=== PATIENT | female | born 2000 | race Caucasian/White ===

== ENCOUNTER 2024-04-19 23:10 | Emergency (ER) | payer BC, SELFPAY ==
[2024-04-19 23:36] VITALS: BP 130/86; PULSE 105; RESP 16; TEMP 36.6; O2SAT 100; BMI 20.2
--- OUTSIDE RECORDS SUMMARY | 2024-04-20 00:10 | XMS_ITS | Clinical Summary ---
Author Organization [facility] Address [place], [place] [address] Care Team Providers Care Hand Spring Repairer Name Role Phone Ranulfo Thomasomega Primary Care Provider Unavail able Allergies Active Allergy Reactions Criticality Noted Date Comments Gluten GI Upset 04/22/2021 Onion Throat Swelling/Closing High 06/26/2018 Paroxetine Other - Describe In Comment Field 11/17/2020 Dilated eyes Medications Medication Sig Dispensed Refills Start Date End Date Status gabapentin (NEURONTIN) 300 mg capsule Take 300 mg by mouth. 09/17/2020 Active albuterol HFA (PRO-AIR; VENTOLIN; PROVENTIL) 90 mcg/actuation inhalerIndications:Mil d intermittent asthma without complication Inhale 2 Puffs by mouth every 4 hours if needed. 0 02/11/2021 Active cloNIDine HCL (CATAPRES) 0.1 mg tablet 0.1 mg. 08/29/2021 Active desogestrel-ethinyl estradiol 0.15-30 mg-mcg (Apri) tablet Apri 0.15 mg-0.03 mg tablet Active pantoprazole (PROTONIX) 40 mg delayed-release tabletIndications:Acut e gastric ulcer without hemorrhage or perforation Take 1 Tablet (40 mg) by mouth once daily. 30 Tablet 06/09/2022 Active Active Problems Problem Noted Date Diagnosed Date Seizure 03/05/2022 Sleep disorder 06/26/2018 Mood disorder 06/26/2018 Anxiety 06/26/2018 Resolved Problems Problem Noted Date Diagnosed Date Resolved Date Anorexia nervosa, restricting type 03/05/2022 04/29/2022 Immunizations Name Administration Dates Next Due AMB Influenza, IIV4 PF (=>6 mos Flulaval,Fluzone Fluarix)(Flu Clinic Only) 09/11/2019 Influenza, IIV4 12/16/2020,07/19/2018 Family History Medical History Relation Name Comments Anxiety disorder Father Brain Aneurysm Maternal Grandmother Stroke Maternal Grandmother Depression Mother Anxiety disorder Paternal Aunt Anxiety disorder Paternal Grandfather Lung cancer Paternal Grandfather Anxiety disorder Paternal Grandmother Lung cancer Paternal Grandmother Relation Name Status Comments Father Maternal Grandmother Mother Paternal Aunt Paternal Grandfather Paternal Grandmother Social History Tobacco Use Types Packs/Day Years Used Date Smoking Tobacco: Never Smokeless Tobacco: Never Tobacco Cessation:Counseling Given: Yes Comments:no exposure Alcohol Use Standard Drinks/Week Comments Never 0 (1 standard drink = 0.6 oz pur e alcohol) PHQ-2 Answer Date Recorded PHQ-2 TOTAL SCORE 0 03/05/2022 Social Connections Answer Date Recorded Frequency of Communication with Friends and Fami ly Not on file 10/31/2021 Financial Resource Strain Answer Date R ecorded Difficulty of Paying Living Expenses Not on file 10/31/2021 Difficulty of Paying Living Expenses Not on file 10/31/2021 Sex and Gender Information Value Date Recorded Sex Assigned at Not on file Gender Identity Not on file Sexual Orientation Not on file Obstetrics History Para Term AB IAB SAB Ectopic Multiple Livin g Live Births 0 0 0 0 0 0 0 0 0 0 0 Last Filed Vital Signs Vital Sign Reading Time Taken Comments Blood Pressure 123/77 04/29/2022 9:42 AM CDT Pulse 106 04/29/2022 9:39 AM CDT Temperature 36.8 ??C (98.3 ??F) 03/25/2022 9:26 AM CD T Respiratory Rate 15 11/12/2021 1:48 PM DISPATCH LEAD Oxygen Saturation 100% 04/29/2022 9:39 AM CDT Inhaled Oxygen Concentration - - Weight 50.9 kg (112 lb 3.2 oz) 04/29/2022 9:39 A M CDT Height 149.5 cm (4' 10.86) 04/29/2022 9:39 AM C DT Body Mass Index 22.77 04/29/2022 9:39 AM CDT Plan of Treatment Health Maintenance Due Date Last Done Comments Tdap 2012 HIV for age 15-65 2016 HPV series for age 9-26 (1 - 3-dose series) 2016 Hepatitis C screening for age 18-79 2019 Chlamydia for age 16-24 12/16/2021 12/16/2020 Tetanus booster 2021 Pap test for age 21-65 2022 Depression screening for age 12+ 03/05/2023 03/05/2022, 11/17/2020, 06/29/2018, Additional history exists BMI (ht and wt on same day) for age 18+ 04/29/2023 04/29/2022, 03/25/2022, 03/05/2022, Additional history exists COVID-19 vaccine series (3 - season) 2023 02/24/2021, 01/27/2021 Influenza for age 9-49 07/01/2024 , 09/11/2019, 07/19/2018 Pneumococcal series for age 6-64 Aged Out No longer eligible based on patient's age to complete this topic Procedures Procedure Name Priority Date/Time Associated Diagnosis Comments GC CHLAMYDIA TRACH PROBE Routine 12/16/2020 12:25 PM DISPATCH LEAD from Last 3 Months or Most Recently Relevant to Health Maintenance Results * GC CHLAMYDIA TRACH PROBE (12/16/2020 12:25 PM DISPATCH LEAD) CHLAMYDIA PROBE Negative 11:21 PM DISPATCH LEAD [facility] N GONORRHOEAE PROBE Negative 12/17/2020 11:21 PM DISPATCH LEAD [facility] Other VAGINAL SWAB / Unknown Client Collect / Unknown 12/16/2020 12:25 PM DISPATCH LEAD 12/17/2020 6:03 PM DISPATCH LEAD January Anjum SIMPSON [employer] [facility] [address] [place] [address], [place] from Last 3 Months or Most Recently Relevant to Health Maintenance Care Teams Hand Spring Repairer Relationship Specialty Start Date End Date Leela Thomas PCP - General 07/31/20
--- OUTSIDE RECORDS SUMMARY | 2024-04-20 00:10 | XMS_ITS | Clinical Summary ---
Author Organization [facility] Address [address] [place] [address] Care Team Providers Care Lobster Catcher Name Role Phone Elsewhere, Pcp Primary Care Provider Unavailabl e Source Comments Patient records contain information from all sites at [facility]. For routine questions regarding patient records, call [phone] during business hours, M-F 8:00 AM - 5:00 PM Central Time. Record requests for emergency care only can be directed to [phone] at any time.[facility] Allergies Active Allergy Reactions Criticality Noted Date Comments Fish Containing Products GI intolerance 12/27/2018 Gluten GI intolerance 04/22/2021 Onion Other (see comments) 06/03/2016 Mouth numbness/tingling Mouth numbness/tingling Other [place]-3s GI intolerance 06/03/2016 ALL SEAFOOD Paroxetine Other (see comments) 11/17/2020 Dilated eyes Medications Medication Sig Dispensed Refills Start Date End Date Status gabapentin (NEURONTIN) 300 mg capsule Take 300 mg by mouth 3 (three) times a day. 09/17/2020 Active olopatadine (PATADAY) 0.2 % ophthalmic solution Administer 1 drop into both eyes daily. 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 e To A Substance Or Known Physiological Condition 10/06/2018 Resolved Problems Problem Noted Date Diagnosed Date Resolved Date Suicide Ideation 12/27/2018 01/01/2019 Encounters Date Type Department Care Team Description 04/12/2024 Clinical Communication Division of General Internal Medicine in [place], [place] [address] [place] [address] Prescheduling, Provider Triage from Last 3 Months Family History Medical History Relation Name Comments Anxiety disorder Father Depression Maternal Grandmother Depression Mother Anxiety disorder Sister Suicide Uncle Great Uncle Relation Name Status Comments Father Alive Maternal Grandmother Mother Alive Sister Uncle Great Uncle Social History Tobacco Use Types Packs/Day Years Used Date Smoking Tobacco: Former Cigarettes Smokeless Tobacco: Never Tobacco Cessation:Counseling Given: Not Answered Alcohol Use Standard Drinks/Week Comments No 0 (1 standard drink = 0.6 oz pur e alcohol) PHQ-2 Answer Date Recorded PHQ-2 Score 8 04/13/2019 Nutrition Answer Date Recorded Nutrition: EVOO Fat Source Unknown 12/23 Nutrition: Servings of Fruits/Vegetables per Day Not on file 12/23/2020 Dental Answer Date Recorded Dental: Regular Dentist Unknown 12/23/19 Sex and Gender Information Value Date Recorded Sex Assigned at Not on file Gender Identity Not on file Sexual Orientation Not on file Last Filed Vital Signs Vital Sign Reading Time Taken Comments Blood Pressure 132/85 04/20/2023 9:16 AM CDT Pulse 97 04/20/2023 9:16 AM CDT Temperature 36.8 ??C (98.2 ??F) 04/20/2023 9:16 AM CD T Respiratory Rate 18 04/20/2023 9:16 AM CDT Oxygen Saturation 100% 04/20/2023 9:16 AM CDT Inhaled Oxygen Concentration - - Weight 60 kg (132 lb 4.4 oz) 04/20/2023 9:16 AM CDT Height 149.9 cm (4' 11) 04/22/2021 7:23 PM CDT Body Mass Index 26.72 04/22/2021 7:23 PM CDT Plan of Treatment Health Maintenance Due Date Last Done Comments Cervical Cancer Screening 2001 Hepatitis C Screening 2001 HPV Vaccines (1 - 3-dose series) 2016 DTaP,Tdap,and Td Vaccines (1 - Tdap) 2020 Hepatitis B Vaccines (1 of 3 - 19+ 3-dose series) 2020 COVID-19 Vaccine (3 - 2022- season) 2023 02/24/2021, 01/27/2021 Influenza Vaccine (#1) 2023 , 09/11/2019, 07/19/2018 Depression Screening (Annual PHQ-2) 10/31/2023 Glucose Test for Med Monitoring Discontinued 03/05/2022, 04/22/2021, 02/11/2021, Additional history exists Meningococcal Vaccine Aged Out No clarisse reece eligible based on patient's age to complete this topic Pneumococcal vaccine (0-64 years) Aged Out No longer eligible based on patient's age to complete this topic Procedures Procedure Name Priority Date/Time Associated Diagnosis Comments EXTI BASIC METABOLIC PANEL, S/P Routine 03/05/2022 11:25 AM CDT from Last 3 Months or Most Recently Relevant to Health Maintenance Advance Directives For more information, please contact: [phone] * Full Code (Latest Code Status on File) Date Activated Date Inactivated Comments 12/27/2018 3:43 PM 01/01/2019 2:05 PM Question Answer Comments Full Code: Not Discussed Due to: Not medically appropriate * Full Code Date Activated Date Inactivated Comments 10/06/2018 7:05 PM 10/10/2018 2:56 PM Question Answer Comments Full Code: Not Discussed Due to: Not medically appropriate Care Teams Lobster Catcher Relationship Specialty Start Date End Date Elsewhere, Pcp PCP - General Family Medicine 12/27/18
--- OUTSIDE RECORDS SUMMARY | 2024-04-20 00:11 | XMS_ITS | Encounter Summary ---
Author Organization [facility] Address [address] [place] [id number] Care Team Providers Care Filler Shredding Machine Loader Name Role Phone Elsewhere, Pcp Primary Care Provider Unavailabl e Reason for Visit * Reason Onset Date Comments Triage 04/12/2024 Encounter Details Date Type Department Care Team (Late st Contact Info) Description 04/12/2024 Clinical Communication Division of General Internal Medicine in [place], [place] [address] [place] [phone] Prescheduling, Provider Triage Social History Tobacco Use Types Packs/Day Years Used Date Smoking Tobacco: Former Cigarettes Smokeless Tobacco: Never Alcohol Use Standard Drinks/Week Comments No 0 (1 standard drink = 0.6 oz pur e alcohol) PHQ-2 Answer Date Recorded PHQ-2 Score 8 04/13/2019 Nutrition Answer Date Recorded Nutrition: EVOO Fat Source Unknown 12/23 Nutrition: Servings of Fruits/Vegetables per Day Not on file 12/23/2020 Dental Answer Date Recorded Dental: Regular Dentist Unknown 12/23/19 21 Sex and Gender Information Value Date Recorded Sex Assigned at Not on file Gender Identity Not on file Sexual Orientation Not on file documented as of this encounter Miscellaneous Notes * Telephone Encounter - Pam Pisano - 04/12/2024 5:40 PM CDT Michelle Samuels 2000 [id number] 23 years Height: 4'11 Weight: 110 Gender: Female PCP: Who filled out ARF: Patient Request: I have medical symptoms without a clear diagnosis MAIN SYMPTOM Possible Fibromyalgia or Estefany Danlos syndrome Description: - Chronic pain and fatigue issues my entire life, I've seen several doctors about it and gotten bloodwork done to figure out causes but I've never gotten any answers. An orthopedic surgeon I saw around age 14 was concerned about my knees and ankles. I've dealt with significant pain in nearly all myjoints since I was 17, but it's more pronounced in the left side of my body and in both of my knees, ankles, and hips - My ribs move around a lot, it feels like they pop out of place and back in, this also causes a lot of pain as it happens several times a day if I'm moving around or even just laying down - I have periods of being extremely low energy, just getting out of bed and going to work can be really exhausting - I have to structure activities, errands, chores etc carefully because if I push myself I end up feeling much worse and end up paying for it the next day or several days Duration: More than 12 months Previous Eval: Yes Location: [facility] Have had: Blood or urine tests Diagnosis: Outcome: Between the blood tests and talking to the provider I didn't get any answer at all Expectations: I just want to figure out if there is any way to alleviate the symptoms I've been experiencing ADDITIONAL - 1 Description: Duration: Previous Eval: Location: Have had: Diagnosis: Outcome: Expectations: ADDITIONAL - 2 Description: Duration: Previous Eval: Location: Have had: Diagnosis: Outcome: Expectations: ADDITIONAL - 3 Description: Duration: Previous Eval: Location: Have had: Diagnosis: Outcome: Expectations: ADDITIONAL - 4 Description: Duration: Previous Eval: Location: Have had: Diagnosis: Outcome: Expectations: ADDITIONAL CONCERNS: LIFESTYLE MEDICINE CONSULTATION: Yes CONDITIONS: Pain, Fatigue BOTHERED BY: Feeling nervous, anxious or on edge - Not being able to control or stop worrying - Little interest or pleasure in doing things - Feeling down, depressed, or helpless - Willing to speak to a mental health professional - PAIN LONGER THAN 3 MONTHS: Yes CARE PROVIDERS TO DATE: 2 LOWEST PAIN LAST 7 DAYS (0 to 10): 4 PAIN INTERFERENCE PAST 3 MONTHS (0 to 10): 7 PAIN AREAS: NECK, Upper BACK, CHEST, Lower BACK, Right HIP, Right KNEE, Left SHOULDER, Left HIP, Left KNEE FATIGUE A MAIN REASON FOR VISIT: Yes FATIGUE/HOW LONG: More than 12 months PROBLEMS WITH SLEEP: Yes SLEEP PROBLEMS LAST 2 WEEKS: Moderate SLEEP APNEA DIAGNOSIS: No Willing to attend [facility] or [facility] appointments - Definitely yes DAILY MEDS: 6 OPIOIDS: No CURRENT DIALYSIS: No CURRENT HEALTH/PAST YEAR: Fair CONFIDENCE: Agree NOT AVAILABLE: I AM AVAILABLE ANY TIME PHONE: [phone] documented in this encounter Plan of Treatment Not on file documented as of this encounter Visit Diagnoses Not on filedocumented in this encounter Additional Health Concerns Assessment Noted Time PHQ-9 Depression Total Score: 8 01/02/20 19 10:00 AM CATH LAB RADIOLOGICAL TECHNOLOGIST documented as of this encounter Care Teams Filler Shredding Machine Loader Relationship Specialty Start Date End Date Elsewhere, Pcp PCP - General Family Medicine 12/27/18 documented as of this encounter
--- OUTSIDE RECORDS SUMMARY | 2024-04-20 00:11 | XMS_ITS | Referral Summary ---
Author Organization [facility] Address [address] [place] [address] Care Team Providers Care Molding Associate Name Role Phone Elsewhere, Pcp Primary Care Provider Unavailabl e Source Comments Patient records contain information from all sites at [facility]. For routine questions regarding patient records, call [phone] during business hours, M-F 8:00 AM - 5:00 PM Central Time. Record requests for emergency care only can be directed to [phone] at any time.[facility] Encounters Date Type Department Care Team Description 04/12/2024 Clinical Communication Division of General Internal Medicine in [place], [place] [address] [place] [address] Prescheduling, Provider Triage from Last 3 Months Allergies Active Allergy Reactions Criticality Noted Date Comments Fish Containing Products GI intolerance 12/27/2018 Gluten GI intolerance 04/22/2021 Onion Other (see comments) 06/03/2016 Mouth numbness/tingling Mouth numbness/tingling Other [place]-3s GI intolerance 06/03/2016 ALL SEAFOOD Paroxetine Other [...] Date Resolved Date Suicide Ideation 12/27/2018 01/01/2019 Social History Tobacco Use Types Packs/Day Years [...] 04/22/2021 7:23 PM CDT Plan of Treatment Not on file Procedures Procedure Name Priority Date/Time Associated Diagnosis Comments EXTI BASIC METABOLIC PANEL, S/P Routine 03/05/2022 11:25 AM CDT from Last 3 Months or Most Recently Relevant to Health Maintenance Advance Directives For more information, please contact: [phone] * Full Code (Latest Code Status on File) Date Activated Date Inactivated Comments 12/27/2018 3:43 PM 01/01/2019 2:05 PM Question Answer Comments Full Code: Not Discussed Due to: Not medically appropriate * Full Code Date Activated Date Inactivated Comments 10/06/2018 7:05 PM 10/10/2018 2:56 PM Question Answer Comments Full Code: Not Discussed Due to: Not medically appropriate Care Teams Molding Associate Relationship Specialty Start Date End Date Elsewhere, Pcp PCP - General Family Medicine 12/27/18
--- OUTSIDE RECORDS SUMMARY | 2024-04-20 00:11 | XMS_ITS ---
Author Organization [facility] Address [address] [place] [address] Care Team Providers Care Reconnaissance Man Name Role Phone Unavailable Unavailable Unavailable Surgery Details Not on file Complications Check Surgery Details section. Procedure Estimated Blood Loss Check Surgery Details section. Procedure Findings Check Surgery Details section. Procedure Specimens Taken Check Surgery Details section.
--- NOTE | 2024-04-20 00:19 | ED_ITS ---
HPI - General Adult General Chief complaint: Sore Throat Stated complaint: bad reaction to new medication she is taking Time Seen by Provider: 04/19/24 23:37 Source: patient Mode of arrival: ambulatory Limitations: no limitations History of Present Illness HPI narrative: 23-year-old female presents to the emergency department for evaluation of mouth and throat irritation. Reports that this started Tuesday night when she started trazodone, a new medication for her. Currently taking 25 mg at bedtime. There is no severe shortness of breath, no hives. No facial swelling. She was evaluated in urgent care yesterday and strep test was performed which is negative. She did not take the medication last night and noticed that her symptoms were a little bit better and then took the medication tonight and realized that the throat irritation had returned. It is mildly tender accompanied by mucousy feeling, no severe shortness of breath. She does have a history of GERD and takes omeprazole for this as well. She does also take an allergy medicine but has not noticed an association with dry mouth and irritation from her allergy medicine. She has not contacted her prescribing provider regarding the side effects. No other prior history of drug reactions in the past. No known drug allergies. She good will her symptoms and this led her to be seen in the emergency department tonight. Past medical history notable for GERD. Medications reviewed. ROS notable for the HEENT symptoms as above only, otherwise denies other systemic symptoms times 10 Related Data Home Medications ?Medication ?Instructions ?Recorded ?Confirmed allergy medication PO 04/19/24 04/19/24 omeprazole PO 04/19/24 04/19/24 trazodone 50 mg tablet 25 - 50 mg PO QPM PRN insomnia 04/19/24 04/19/24 Allergies Allergy/AdvReac Type Severity Reaction Status Date / Time No Known Drug Allergies Allergy Verified 04/19/24 09:05 PFSH PFS Social History Do you use any of these nicotine containing products: None Non-prescribed substance use: denies use Exam Const: Vital Signs, click to edit/add: Vital Signs - 24 hr 04/19/24 23:36 Temperature 97.9 F Pulse Rate [Pulse Oximeter] 105 H Respiratory Rate 16 Blood Pressure [Ri ght Upper Arm] 130/86 Pulse Oximetry 100 Oxygen Delivery Me thod Room Air Documenting provider has reviewed patient's vital signs: yes Common normals: alert Other: Mildly anxious but cooperative, good historian. HENMT: Common normals: normocephalic, nasal mucous membranes and turbinates normal, moist oral mucous membranes, oropharynx normal, dentition normal and gingiva normal Head and scalp: normocephalic Face and sinus: normal facial exam Nose: nasal mucous membranes and turbinates normal Eye: Common normals: conjunctivae normal General eye: normal appearance of both eyes Conjunctiva: conjunctiva(e) normal Neck & C-Spine: Common normals: full ROM and no lymphadenopathy Resp: Common normals: normal respiratory effort, no use of accessory muscles and clear to auscultation bilaterally Effort & inspection: able to speak in complete sentences Auscultation: clear to auscultation bilaterally Cardio: Common normals: regular rate, regular rhythm, S1 normal heart sound, S2 normal heart sound and no murmurs Rate: regular rate Rhythm: regular rhythm Heart sounds: S1 normal and S2 normal Extremity: Common normals: normal to inspection and normal capillary refill Neuro: Sensorium/orientation: alert Speech: speech normal Psych: Attitude: engaged Activity/motor behavior: appropriate eye contact Insight: fair Judgement: fair Skin: Common normals: no rashes or lesions noted General skin exam: no rashes or lesions noted Course Course ED Course: Patient evaluated, no signs of respiratory distress, no signs of allergic reaction, mucosal abnormality. Strep test performed at urgent care has been negative, not repeated. Patient counseled on findings. Likely a mild side effect to the medication as there does seem to be correlation with timing of this. It does seem like a side effect rather than an allergy and it does not seem harmful to her. Counseled that often these will improve in time I recommend that she given about 2 weeks since there are no signs of significant harm. But if the side effects are more bothersome than I am interpreting, she is welcome to stop the medication as long as she is in close contact with her prescribed bring for his issue in regarding next steps and management. Alarm symptoms reviewed that would warrant ED presentation. She verbalizes understanding and agreement. Vital Signs Vital signs: Initial Vital Signs Temperature 97.9 F 04/19/24 23:36 Temperature Source Temporal Artery Scan 04/19/24 23:36 Pulse Rate 105 H 04/19/24 23:36 Respiratory Rate 16 04/19/24 23:36 Blood Pressure 130/86 04/19/24 23:36 Blood Pressure Mean 100 04/19/24 23:36 Blood Pressure Position Supine 04/19/24 23:36 Pulse Oximetry 100 04/19/24 23:36 Oxygen Delivery Method Room Air 04/19/24 23:36 Vital Signs Temperature 97.9 F 04/19/24 23:36 Pulse Rate 105 H 04/19/24 23:36 Respiratory Rate 16 04/19/24 23:36 Blood Pressure 130/86 04/19/24 23:36 Pulse Oximetry 100 04/19/24 23:36 Oxygen Delivery Method Room Air 04/19/24 23:36 Temperature 97.9 F 04/19/24 23:36 Pulse Rate 105 H 04/19/24 23:36 Respiratory Rate 16 04/19/24 23:36 Blood Pressure 130/86 04/19/24 23:36 Pulse Oximetry 100 04/19/24 23:36 Oxygen Delivery Method Room Air 04/19/24 23:36 Discharge Plan Discharge Clinical Impression: Medication side effects Patient Disposition: Home, Self-Care Condition: Stable Instructions: Adverse Drug Reaction (ED) Additional Instructions: As we discussed, your having mild side effects to a medication but no allergic reaction. Typically with mild side effects, these get better in time. I would recommend that you stay on the medication as most people notice improvement at about the 2 week garrison. There are no signs of dangerous reaction today. If you do choose to discontinue the medication due to the mild side effects, you should be in communication with her mental health provider regarding this choice and potential discussion of other options. I do think your symptoms will improve in time. It is okay to use Tylenol and/or ibuprofen for the mild discomfort. I would recommend avoiding medications that cause additional dryness like antihistamines, alcohol based mouth washes, etc.. It is okay to use products intended for dry mouth. If you have severe difficulty breathing, significant throat or tongue swelling, you should present to the emergency department. Activity Level: No Restrictions Discharge Diet: Regular Prescriptions: No Action trazodone 50 mg tablet 25 - 50 mg PO QPM PRN (Reason: insomnia) omeprazole PO allergy medication PO Follow Up/Referrals: Provider,Not a Local [Primary Care Provider] - Stand Alone Forms: [employer] Info Instructions
== END 2024-04-20 00:22 | disposition home or self-care (01) ==
PROVIDERS: Emergency Provider Family Medicine
DX: J02.9 Acute pharyngitis, unspecified (principal); T43.215A Adverse effect of selective serotonin and norepinephrine reuptake inhibitors, initial encounter
CPT/HCPCS: 99283

== ENCOUNTER 2024-10-08 15:58 | Outpatient (CLI) | payer BC, SELFPAY | END 2024-10-08 15:59 | disposition home or self-care (01) | LOC: NFLDREF 10-11 11:50 | PROVIDERS: Visit Provider Physician Assistant | DX: N39.0 Urinary tract infection, site not specified (principal); B96.20 Unspecified Escherichia coli [E. coli] as the cause of diseases classified elsewhere | CPT/HCPCS: 87086; 87186 ==